=== PATIENT | female | born 1985 | race Caucasian/White ===

== ENCOUNTER 2016-07-28 04:09 | Inpatient (IN) | payer SELFPAY ==
--- NOTE | 2016-07-28 05:00 | ED.PDOC ---
History of Present Illness - General Information Source: patient, RN notes reviewed, Vital Signs reviewed Exam Limitations: no limitations - History of Present Illness Initial Comments: Nadine Hobbs 31 y/o female stated that for the last one week she experienced dull bearable pains on her right flank radiating to her right lower quadrant no other accompanying symptoms able to eat without worsening her symptoms but the last 3days she started having occasional nausea and vomiting with loss of appetite stating smell of food makes her throw up.No dysuria or hematuria no diarrhea or constipation.Had history of anemia and worked up with egd/ colonoscopy showing internal hemorrhoids and 2 colonic polyps removed during colonoscopy. This time came to er rhinking she might have uti. Abdominal Pain Onset Location: flank - right Pain Radiation: RLQ Quality: dull, steady Timing/Duration: other - 7 days ago woke her up midnight pain got worse Worsening Factors: nothing Associated Symptoms: nausea/vomiting <Craig Seymour - Last Filed: 07/28/16 06:45> <Elijah Joseph - Last Filed: 07/28/16 08:13> - General Chief Complaint: Abdominal Pain Stated Complaint: low abdomen pain, flank pain Time Seen by Provider: 07/28/16 04:59 Review of Systems - Review of Systems Constitutional: States: no symptoms reported EENTM: States: no symptoms reported Respiratory: States: no symptoms reported Cardiology: States: no symptoms reported Gastrointestinal/Abdominal: States: see HPI Genitourinary: States: no symptoms reported Musculoskeletal: States: no symptoms reported Skin: States: no symptoms reported Neurological: States: no symptoms reported Endocrine: States: no symptoms reported Hematologic/Lymphatic: States: no symptoms reported <Craig Seymour - Last Filed: 07/28/16 06:45> Past Medical History (General) - Patient Medical History Hx Seizures: No Hx Stroke: No Hx Dementia: No Hx Asthma: No Hx of COPD: No Hx Cardiac Disorders: No Hx Congestive Heart Failure: No Hx Pacemaker: No Hx Hypertension: No Hx Thyroid Disease: No Hx Diabetes: No Hx Gastroesophageal Reflux: No Hx Renal Disease: No Hx Cancer: No Hx of HIV: No Hx Hepatitis C: No Hx MRSA: No Hx Other PMH: Yes - chronic anemia Surgical History: no surgical history, other - colonoscopy w/polyp removal- benign,egd - Vaccination History Hx Tetanus, Diphtheria Vaccination: No Hx Influenza Vaccination: No Hx Pneumococcal Vaccination: Yes Immunizations Up to Date: No - Social History Hx Tobacco Use: No Hx Chewing Tobacco Use: No Hx Alcohol Use: No Hx Substance Use: No Hx Substance Use Treatment: No Hx Depression: No Feels Threatened In Home Enviroment: No Feels Threatened In a Relationship: No Hx Physical Abuse: No Hx Emotional Abuse: No Hx Suspected Abuse: No - Female History Patient is a Female of Child Bearing Age (10 -59 yrs old): Yes Patient : No <FeliInez hammo R - Last Filed: 07/28/16 06:45> Family Medical History - Family History Mother Family History: Unknown Living Status: Still Living Hx Family Hypertension: Yes - parents Hx Family Cancer: Yes - lung-dad;cervical-mom <Inez Seymouro R - Last Filed: 07/28/16 06:45> Physical Exam - Physical Exam General Appearance: Alert, No apparent distress Eyes, Ears, Nose, Throat Exam: PERRL/EOMI, normal ENT inspection, TMs normal, pharynx normal Neck: non-tender, full range of motion, supple, normal inspection Respiratory: chest non-tender, lungs clear, normal breath sounds Cardiovascular/Chest: normal peripheral pulses, regular rate, rhythm, no edema, no murmur Peripheral Pulses: No deficit Gastrointestinal/Abdominal: normal bowel sounds, soft, no organomegaly, tenderness - rlq no peritoneal signs Back Exam: normal inspection, no CVA tenderness, no vertebral tenderness Extremity: non-tender, normal inspection, no pedal edema, no calf tenderness Neurologic: no motor/sensory deficits, alert, oriented x 3 Skin Exam: normal color, warm/dry Lymphatic: no adenopathy <Inez Seymouro R - Last Filed: 07/28/16 06:45> Progress - Results/Orders Results/Orders: Vital Signs - 8 hr 07/28/16 07/28/16 07/28/16 04:17 05:09 06:09 Temperature 97.9 F Pulse Rate [ 110 H 107 H 105 H monitor] Respiratory 16 16 16 Rate Blood Pressure 147/66 145/74 141/83 [Left Arm] O2 Sat by Pulse 96 97 97 Oximetry 07/28/16 04:17 UA [URINALYSIS] Stat 07/28/16 06:00 URINE CULTURE W/COLONY COUNT Stat 07/28/16 06:07 Abdomen/Pelvis w/Contrast [CT] Stat 07/28/16 06:08 Hold Metformin x 48Hrs [id number] 07/28/16 06:28 ETHYL ALCOHOL (ETOH) Stat 07/28/16 06:30 URINE CULTURE W/COLONY COUNT Stat Laboratory Results WBC 3.6 K/mm3 (4.8-10.8) L 07/28/16 05:20 RBC 3.61 M/mm3 (4.20-5.40) L 07/28/16 05:20 Hgb 10.8 gm/dL (12.0-16.0) L 07/28/16 05:20 Hct 32.9 % (36.0-47.0) L 07/28/16 05:20 MCV 91.1 fl (81.0-99.0) 07/28/16 05:20 MCH 29.9 pg (27.0-31.0) 07/28/16 05:20 MCHC 32.7 g/dL (33.0-37.0) L 07/28/16 05:20 RDW 19.4 % (11.5-14.5) H 07/28/16 05:20 Plt Count 100 K/mm3 (130-400) L 07/28/16 05:20 MPV 6.3 fl (7.40-10.4) L 07/28/16 05:20 Absolute Neuts (auto) 1.30 K/uL (1.8-6.8) L 07/28/16 05:20 Absolute Lymphs (auto) 1.50 K/uL (1.0-3.4) 07/28/16 05:20 Absolute Monos (auto) 0.60 K/uL (0.2-0.8) 07/28/16 05:20 Absolute Eos (auto) 0.10 K/uL (0.0-0.4) 07/28/16 05:20 Absolute Basos (auto) 0.10 K/uL (0.0-0.1) 07/28/16 05:20 Neutrophils % 35.4 % (42.0-78.0) L 07/28/16 05:20 Lymphocytes % 42.1 % (20.0-50.0) 07/28/16 05:20 Monocytes % 17.2 % (2.0-9.0) H 07/28/16 05:20 Eosinophils % 2.9 % (1.0-5.0) 07/28/16 05:20 Basophils % 2.4 % (0.0-2.0) H 07/28/16 05:20 Sodium 144 mmol/L (135-145) 07/28/16 05:20 Potassium 3.4 mmol/L (3.6-5.0) L 07/28/16 05:20 Chloride 109 mmol/L (101-111) 07/28/16 05:20 Carbon Dioxide 25 mmol/L (21-31) 07/28/16 05:20 Anion Gap 13.4 (12-18) 07/28/16 05:20 BUN 7 mg/dL (7-18) 07/28/16 05:20 Creatinine 0.45 mg/dL (0.6-1.3) L 07/28/16 05:20 BUN/Creatinine Ratio 15.6 (10-20) 07/28/16 05:20 Random Glucose 99 mg/dL (70-105) 07/28/16 05:20 Serum Osmolality 284.8 mOsm/L (275-295) 07/28/16 05:20 Calcium 8.6 mg/dL (8.4-10.2) 07/28/16 05:20 Total Bilirubin 2.7 mg/dL (0.2-1.0) H* 07/28/16 05:20 AST 168 IU/L (10-42) H 07/28/16 05:20 ALT 63 IU/L (10-60) H 07/28/16 05:20 Alkaline Phosphatase 82 IU/L (42-121) 07/28/16 05:20 Serum Total Protein 8.0 gm/dL (6.4-8.2) 07/28/16 05:20 Albumin 4.1 g/dl (3.2-5.5) 07/28/16 05:20 Globulin 3.9 gm/dL (2.3-3.5) H 07/28/16 05:20 Albumin/Globulin Ratio 1.1 (1.1-1.9) 07/28/16 05:20 Lipase 33 U/L (22-51) 07/28/16 05:20 Serum HCG, Qual Negative 07/28/16 05:20 Urine Color Yellow (Yellow) 07/28/16 06:00 Urine Appearance Sl cloudy (Clear) 07/28/16 06:00 Urine pH 7.0 (4.5-7.8) 07/28/16 06:00 Ur Specific [place] 1.010 (1.005-1.030) 07/28/16 06:00 Urine Protein Negative mg/dL 07/28/16 06:00 Urine Glucose (UA) Negative mg/dL (Negative) 07/28/16 06:00 Urine Ketones Negative mg/dL (NEGATIVE) 07/28/16 06:00 Urine Blood Moderate (Negative) H 07/28/16 06:00 Urine Nitrite Positive H 07/28/16 06:00 Urine Bilirubin Negative (NEGATIVE) 07/28/16 06:00 Urine Urobilinogen 2.0 mg/dL (0.2-1.0) H 07/28/16 06:00 Ur Leukocyte Esterase Negative (Negative) 07/28/16 06:00 Urine RBC 1-3 /hpf 07/28/16 06:00 Urine WBC 0 /hpf 07/28/16 06:00 Ur Epithelial Cells 0-1 /hpf 07/28/16 06:00 Urine Bacteria 4+ H 07/28/16 06:00 Urine Opiates Screen Negative ng/mL (2000) 07/28/16 06:00 Urine Barbiturates Negative ng/mL (200) 07/28/16 06:00 Ur Phencyclidine Scrn Negative ng/mL (25) 07/28/16 06:00 U Amphetamin/Meth Scrn Negative ng/mL (1000) 07/28/16 06:00 U Benzodiazepines Scrn Negative ng/mL (200) 07/28/16 06:00 U Cocaine Metab Screen Negative ng/mL (300) 07/28/16 06:00 U Cannabinoids Screen Negative ng/mL (50) 07/28/16 06:00 Ethyl Alcohol 463.70 mg/dL (0-79) H* 07/28/16 05:20 <Craig Seymour R - Last Filed: 07/28/16 06:45> - Progress Progress: 07/28/16 08:08 I spoke with the patient regarding her hyperbilirubinemia of 2.7 and her elevated liver enzymes. Blood alcohol levels were in the 400s. Platelets 100. CT abdomen/pelvis showed chronic liver changes including possible fibrosis. It also showed evidence of esophageal varices. After discussing the seriousness of these findings with the patient, she agreed to say for alcohol detoxification and fluids with monitoring of liver function. Incidently, she has a moderate UTI. Laboratory Tests 07/28/16 07/28/16 07/28/16 05:20 05:20 05:20 WBC 3.6 L RBC 3.61 L Hgb 10.8 L Hct 32.9 L MCV 91.1 MCH 29.9 MCHC 32.7 L RDW 19.4 H Plt Count 100 L MPV 6.3 L Absolute Neuts (auto) 1.30 L Absolute Lymphs (auto) 1.50 Absolute Monos (auto) 0.60 Absolute Eos (auto) 0.10 Absolute Basos (auto) 0.10 Neutrophils % 35.4 L Lymphocytes % 42.1 Monocytes % 17.2 H Eosinophils % 2.9 Basophils % 2.4 H Sodium 144 Potassium 3.4 L Chloride 109 Carbon Dioxide 25 Anion Gap 13.4 BUN 7 Creatinine 0.45 L BUN/Creatinine Ratio 15.6 Random Glucose 99 Serum Osmolality 284.8 Calcium 8.6 Total Bilirubin 2.7 H* AST 168 H ALT 63 H Alkaline Phosphatase 82 Serum Total Protein 8.0 Albumin 4.1 Globulin 3.9 H Albumin/Globulin Ratio 1.1 Lipase 33 Serum HCG, Qual Negative Urine Color Urine Appearance Urine pH Ur Specific [place] Urine Protein Urine Glucose (UA) Urine Ketones Urine Blood Urine Nitrite Urine Bilirubin Urine Urobilinogen Ur Leukocyte Esterase Urine RBC Urine WBC Ur Epithelial Cells Urine Bacteria Urine Opiates Screen Urine Barbiturates Ur Phencyclidine Scrn U Amphetamin/Meth Scrn U Benzodiazepines Scrn U Cocaine Metab Screen U Cannabinoids Screen Ethyl Alcohol 07/28/16 07/28/16 07/28/16 05:20 06:00 06:00 WBC RBC Hgb Hct MCV MCH MCHC RDW Plt Count MPV Absolute Neuts (auto) Absolute Lymphs (auto) Absolute Monos (auto) Absolute Eos (auto) Absolute Basos (auto) Neutrophils % Lymphocytes % Monocytes % Eosinophils % Basophils % Sodium Potassium Chloride Carbon Dioxide Anion Gap BUN Creatinine BUN/Creatinine Ratio Random Glucose Serum Osmolality Calcium Total Bilirubin AST ALT Alkaline Phosphatase Serum Total Protein Albumin Globulin Albumin/Globulin Ratio Lipase Serum HCG, Qual Urine Color Yellow Urine Appearance Sl cloudy Urine pH 7.0 Ur Specific [place] 1.010 Urine Protein Negative Urine Glucose (UA) Negative Urine Ketones Negative Urine Blood Moderate H Urine Nitrite Positive H Urine Bilirubin Negative Urine Urobilinogen 2.0 H Ur Leukocyte Esterase Negative Urine RBC 1-3 Urine WBC 0 Ur Epithelial Cells 0-1 Urine Bacteria 4+ H Urine Opiates Screen Negative Urine Barbiturates Negative Ur Phencyclidine Scrn Negative U Amphetamin/Meth Scrn Negative U Benzodiazepines Scrn Negative U Cocaine Metab Screen Negative U Cannabinoids Screen Negative Ethyl Alcohol 463.70 H* 07/28/16 06:45 WBC RBC Hgb Hct MCV MCH MCHC RDW Plt Count MPV Absolute Neuts (auto) Absolute Lymphs (auto) Absolute Monos (auto) Absolute Eos (auto) Absolute Basos (auto) Neutrophils % Lymphocytes % Monocytes % Eosinophils % Basophils % Sodium Potassium Chloride Carbon Dioxide Anion Gap BUN Creatinine BUN/Creatinine Ratio Random Glucose Serum Osmolality Calcium Total Bilirubin AST ALT Alkaline Phosphatase Serum Total Protein Albumin Globulin Albumin/Globulin Ratio Lipase Serum HCG, Qual Urine Color Urine Appearance Urine pH Ur Specific [place] Urine Protein Urine Glucose (UA) Urine Ketones Urine Blood Urine Nitrite Urine Bilirubin Urine Urobilinogen Ur Leukocyte Esterase Urine RBC Urine WBC Ur Epithelial Cells Urine Bacteria Urine Opiates Screen Urine Barbiturates Ur Phencyclidine Scrn U Amphetamin/Meth Scrn U Benzodiazepines Scrn U Cocaine Metab Screen U Cannabinoids Screen Ethyl Alcohol 419.00 H* <Elijah Joseph - Last Filed: 07/28/16 08:13> Departure <Craig Seymour - Last Filed: 07/28/16 06:45> - Departure Diet: other - as per hospitalist <Elijah Joseph - Last Filed: 07/28/16 08:13> - Departure Clinical Impression: Hyperbilirubinemia, Abnormal liver enzymes, Acute alcohol intoxication, UTI ( urinary tract infection), Chronic alcoholism Disposition: Admit Patient Condition: Fair Departure Forms: ED Discharge - Pt. Copy, Patient Portal Self Enrollment Instructions: DI for Abdominal Pain-Adult Home Medications: Ambulatory Orders Ferrous Sulfate [Iron (Ferrous Sulfate)] 50 mg PO DAILY 07/28/16 Water Pill 1 ea PO DAILY 07/28/16
[2016-07-28] MEDS ORDERED: MORPHINE SULFATE INJ 10 MG/ML VIAL IV ONE (05:01)
[2016-07-28] MEDS ORDERED: SODIUM CHLORIDE 0.9% 1000ML 1,000 ML IVS ONE (05:01)
[2016-07-28] MEDS ORDERED: ONDANSETRON INJ 4 MG/2 ML VIAL IV ONE (05:02)
--- NOTE | 2016-07-28 07:12 | CT ---
Procedure: CT ABDOMEN PELVIS WITH IV CONTRAST Exam Date: 07/28/2016 Ordering Provider: Craig Seymour Clinical Indication: Generalized abdominal pain Comparison: None TECHNIQUE: 5 mm images were taken through the abdomen and pelvis after the administration of nonionic intravenous contrast material. Oral contrast was not administered. Coronal and sagittal reformatted images were generated. This exam was performed according to our departmental dose optimization program which includes use of automated exposure control, adjustment of the mA and/or kV according to patient size and/or use of iterative reconstruction technique. FINDINGS: Lower chest: Cardiomegaly. Abdomen: Liver and biliary system: Hepatomegaly. There is heterogenous attenuation of the liver parenchyma. Caudate lobe appears enlarged. No discrete liver mass visualized. Very mild intrahepatic biliary ductal prominence. Gallbladder is distended. No calcified gallstones. Spleen: Enlarged Pancreas: Unremarkable Adrenal glands: Unremarkable Kidneys: Punctate nonobstructing stone in the upper pole the left kidney. No hydronephrosis in either kidney. Lymph nodes: No lymphadenopathy Retroperitoneum, abdominal wall, peritoneal cavity: No ascites. No free intraperitoneal air. Vessels: No abdominal aortic aneurysm. There are extensive portosystemic collaterals/varices. There are esophageal and gastric varices. Pelvis: Lymph nodes: No lymphadenopathy Bowel: No bowel obstruction. No findings to suggest acute appendicitis. No bowel wall thickening. Bladder: Unremarkable Pelvic organs: 4 cm right adnexal cyst. 1.5 cm left adnexal cyst. These are almost certainly benign and no follow-up imaging is recommended. Bones: Nonacute. Bilateral pars defects at L5. Grade 1 anterolisthesis of L5 on S1. IMPRESSION: 1.Hepatomegaly with heterogenous attenuation of the liver parenchyma. No discrete liver mass visualized. These findings are nonspecific but can sometimes be seen with infiltrative hepatocellular carcinoma or confluent liver fibrosis. Further evaluation with contrast-enhanced MRI is recommended. 2. Gallbladder is distended. No calcified gallstones. 3. Extensive portosystemic collaterals with esophageal and gastric varices. 4. Splenomegaly. Electronically signed by: Vinicio Tamayo MD 07/28/2016 7:11 AM CDT
[2016-07-28] MEDS ORDERED: SODIUM CHLORIDE 0.9% 1000ML 1,000 ML ONE (08:01)
[2016-07-28] MEDS ORDERED: THIAMINE HCL INJ 100 MG/ML VIAL ONE (08:02)
[2016-07-28] MEDS ORDERED: MULTIPLE VITAMIN 10 ML VIAL ONE (08:03)
[2016-07-28] MEDS: MULTIPLE VITAMIN INJ 10 ML, THIAMINE HCL INJ 100 MG in SODIUM CHLORIDE 0.9% 1000ML 1,00... IVS SCH (08:09)
--- NOTE | 2016-07-28 09:21 | HP ---
SUPERVISING PHYSICIAN: Ayad Florence M.D. CHIEF COMPLAINT: Right upper quadrant pain, questionable urinary tract infection. HISTORY OF PRESENT ILLNESS: Ms. Hobbs is a 31 year-old female patient that has noted that she has had a weeks' worth of ongoing right flank pain that has radiated up into both right upper quadrant and lower quadrant with her unable to eat due to worsening of her symptoms for the last 3 days. She has now started having some nausea and vomiting, and decreased appetite, but actually no emesis. She felt that she may have a urinary tract infection so she presented to the Emergency Department. She denies any dysuria, hematuria , diarrhea or constipation. She does have a significant history of ongoing chronic anemia that is being followed closely by her primary care physician and has recently had an EGD and colonoscopy that showed internal hemorrhoids and 2 colonic polyps that were reviewed by colonoscopy. Initial workup in the Emergency Department showed her to have a white count of 3.6 with hemoglobin 10.8, hematocrit 32.9 with platelet count 100,000. Differential was will a left shift. Chemistries are significant for an elevated bilirubin of 2.7 with AST 168, ALT 63, potassium 3.4, otherwise electrolytes were within normal limits as well as BUN and creatinine. She admitted to drinking, therefore a toxicology screen was done which was negative for all abuse substances tested, but was positive for an alcohol level of 463. Urinalysis showed her to have a moderate amount of blood, positive nitrites but negative leukocyte esterase with microscopic examination showing 4+ bacteria but no WBCs. Given the patient 's elevated bilirubin and ongoing abdominal pain, a CT of her abdomen was obtained prior to admission and per radiology interpretation abdominal/pelvic CT with IV contrast showed hepatomegaly with some gallbladder distention but no obvious stones with as well extensive portosystemic collaterals with esophageal and gastric varices, and splenomegaly. Pancreatic enzymes show a lipase that was normal. She was afebrile. Given her elevated bilirubin and elevated alcohol level, Dr. Joseph requested the patient be admitted at least overnight for continued IV therapy for treatment of underlying urinary tract infection and allow the patient to detox, and treat some underlying dehydration with close monitoring and further workup. The patient will now be admitted to the Medical/Surgical floor for continued treatment, evaluation and further workup to include ultrasound of the gallbladder and initiation of antibiotic therapy. The patient is admitted in stable condition. PAST MEDICAL HISTORY: 1. Ongoing history of fatty liver disease diagnosed in 2016 with the patient denying any significant history of alcoholism. 2. Chronic anemia currently followed by her primary care physician, Dr. Peña at [facility]. PAST SURGICAL HISTORY: 1. Recent colonoscopy within the last month showing several polyps with internal hemorrhoids per the patient's report as there is no office report available for evaluation. LAST MENSTRUAL PERIOD: 07/15/16 HOME MEDICATIONS: 1. Tramadol 50 mg every 6 hours p.r.n. 2. Aldactone 25 mg in the morning. 3. Iron sulfate 50 mg daily. ALLERGIES: NO KNOWN DRUG ALLERGIES. FAMILY HISTORY: Significant for cirrhosis in her father secondary to alcoholism. It is also noted a history of cancers to include breast and lung cancer in multiple family members. SOCIAL HISTORY: The patient is and lives in [place]. 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 She denies ever smoking and admits to drinking maybe once a month. She denies any illicit drug use. MEDICAL PROVIDERS: Primary care physician, Dr. Peña at [facility] [employer], Dr. Rincon in [place]. REVIEW OF SYSTEMS: CONSTITUTIONAL: Denies any fever, chills, unintentional weight loss or weight gain. HEENT: Denies any headaches, nasal congestion, sore throat, runny nose. RESPIRATORY: Denies any shortness of breath or cough. CARDIOVASCULAR: Denies any chest pains, palpitations or syncopal episodes. GASTROINTESTINAL: As noted in the history of present illness, right upper quadrant pain with ongoing chronic fatty liver disease. GENITOURINARY: Denies any dysuria, hematuria or other urinary symptoms. NEUROLOGIC: Denies any syncopal episodes, changes in vision or other neurological symptoms. HEMATOLOGICAL: Ongoing history of chronic anemia on iron therapy. PHYSICAL EXAMINATION: VITAL SIGNS: Temperature 98.7, pulse 87, blood pressure 126/77, respirations 20 , satting 99% on room air. GENERAL: The patient appears to be in no acute distress. She is actually alert and very pleasant. HEENT: Tympanic membranes are clear bilaterally. Oropharynx is pink and moist without any lesions. NECK: No jugular venous distention. Neck is supple with full range of motion, non-tender. CHEST: Lungs are clear to auscultation bilaterally without any rhonchi, wheezing or rales. CARDIOVASCULAR: Regular rate and rhythm without appreciable murmurs, gallops, or rubs. ABDOMEN: Soft with some tenderness noted to the right upper quadrant, but no rebound tenderness. Bowel sounds are present. BACK: There is no CVA tenderness or vertebral tenderness noted. EXTREMITIES: No clubbing, cyanosis or edema. NEUROLOGIC: She is alert and oriented times three. LABORATORY: CBC shows a white count 3.6, hemoglobin 10.8, hematocrit 32.9, platelet count 100,000. Differential shows to be without a left shift. Coagulation studies show an elevated PT of 14.9 and an elevated PTT of 49.7, INR was 1.32. Chemistries show a mildly low potassium at 3.4 with creatinine 0.45 and normal BUN at 7, glucose 99, calcium 8.6. Liver functions showed an elevated bilirubin at 2.7 with AST 168, ALT 63, alkaline phosphatase was normal. Lipase was normal. Serum HCG was negative. Urinalysis showed a moderate amount of blood with positive nitrites and 2.0 urobilinogen. Microscopic exam revealed 4+ bacteria, 0 WBCs, 0 to 1 epithelials, 1 to 3 RBCs. Toxicology screen was negative for all substances tested. Alcohol level was initially 463 and prior to admission to the floor it was 419. MICROBIOLOGY: Urine culture is pending. RADIOLOGY: Initially in the Emergency Department prior to admission, she had a pelvic CT with IV contrast and per radiology interpretation there was note of hepatomegaly with heterogeneous attenuation of the liver parenchyma with no discrete liver mass visualized. Also of note was the gallbladder being somewhat distended but no calcified stones identified. There was also mention of extensive portosystemic collaterals with esophageal and gastric varices and some splenomegaly. ASSESSMENT: 1. Acute abdominal pain with a history of fatty liver disease with radiographic studies showing hepatomegaly. 2. Moderate dehydration secondary to acute alcohol intoxication. 3. Acute alcohol intoxication with elevated alcohol level concerning for alcohol poisoning with the patient having no active emesis with no history of alcoholism. 4. Radiographic evidence of splenomegaly with a mild thrombocytopenia. 5. Chronic anemia, unknown etiology with recent colonoscopy indicating 2 polyps with pathology pending and internal hemorrhoids along with extensive gastric and esophageal varices with no mention of complications. 6. Right upper quadrant pain with concerns for cholecystitis without any evidence of cholelithiasis on initial radiographic studies. 7. Elevated liver function tests and coagulation studies secondary to fatty liver disease and cirrhosis, unknown etiology, questionable cirrhosis from alcoholism with the patient denying chronic alcohol consumption. 8. Mild electrolytes imbalance with hypokalemia. PLAN: The patient will be admitted for IV therapy, detox and close observation. Will plan to do a gallbladder ultrasound to further rule out any pathology from gallbladder disease given the patient's symptoms and findings on CT. Plan to consult with Dr. Mari in the morning when results are available. The patient will be on a regular diet as tolerated. Will hold off on DVT prophylaxis with Lovenox given the elevated coagulation studies and low platelet count. Will correct her dehydration with IV fluids as well as provide multivitamin infusion with thiamine and additional IV fluids to include half normal saline with 20 of potassium to help replace potassium to run at a total of 250 per hour with close monitoring of her I's and O's. Anticipate possible discharge tomorrow. The patient does have a clinical followup on the with her GI specialist this week. Until then, will continue to monitor the patient closely and treat appropriately. #[id number] [facility]
[2016-07-28] MEDS ORDERED: IV SET AND CAP CHANGE INJ INJ SCH (10:00)
[2016-07-28] MEDS ORDERED: [UNRECOGNIZED DRUG - OTHER] IVS ONE (10:11)
[2016-07-28] MEDS ORDERED: D5 IVS ONE (10:11)
[2016-07-28] MEDS ORDERED: KCL IVS ONE (10:11)
[2016-07-28] MEDS ORDERED: KCL 20MEQ/0.45% NS 1,000 ML IVS ONE (10:18)
[2016-07-28] MEDS ORDERED: cefTRIAXone SODIUM 1 GM VIAL ONE ×2 (10:36→20:18)
[2016-07-28] MEDS ORDERED: SODIUM CHL 0.9% 50ML MIN-BAG+ 50 ML IVPB ONE ×2 (10:36→20:18)
[2016-07-28] MEDS: cefTRIAXone SODIUM 1 GM in SODIUM CHL 0.9% 50ML MIN-BAG+ 50 ML IVPB SCH ×2 (10:41→22:45)
[2016-07-28] MEDS: KCL 20MEQ/0.45% NS 1,000 ML IVS PRN ×2 (11:16→19:33)
--- NOTE | 2016-07-28 12:39 | US ---
Study: Right upper quadrant abdominal ultrasound. Indication: RUQ pain elevated LFT Technical: Multiplanar, grayscale sonogram of the right upper quadrant of the abdomen obtained. Comparison: CT, same day. Findings: The liver is heterogeneously increased in echogenicity consistent with hepatic steatosis. The liver measures 18.3 cm in length. No discrete live mass. Gallbladder distended without appreciable stones. Mild gallbladder wall thickening measuring 3.4 mm. Sonographic Bass sign negative. The common bile duct measures 8.9 mm in diameter. Distal aspect not included within the field of view. No ascites. Impression: Hepatic steatosis and hepatomegaly. No definitive mass lesion. Gallbladder distention with mild gallbladder wall thickening. No definite stones. Dilatation of the common bile duct at 8.9 mm. Electronically signed by: Abdon Melo MD 07/28/2016 12:39 PM CDT
[2016-07-28] MEDS: MORPHINE SULFATE INJ 10 MG/ML VIAL IV PRN ×3 (13:01→23:02)
[2016-07-28] MEDS: SODIUM CHLORIDE 0.9% (FLUSH) 10 ML SYG IV PRN ×2 (21:34→23:01)
[2016-07-28] MEDS: ONDANSETRON INJ 4 MG/2 ML VIAL IV PRN (21:35)
--- NOTE | 2016-07-28 23:38 | PCM.CORE ---
Physician DVT/VTE - Contraindications Medication Contraindication: Medical Contraindication - elevated Pt and PTT with elevated LFT - Nurse DVT Assessment & Total Each Risk Factor Represents 3 Points: Family Hx thrombosis Each Risk Factor is 1 Point: Varicose Veins/Edema Legs, Obesity (BMI >25) DVT Assessment Score: 5 - 5 or more Very High Risk Treatments: Early Ambulation *, Sequential Compression Device
[2016-07-29] MEDS: SODIUM CHLORIDE 0.9% (FLUSH) 10 ML SYG IV PRN (04:14)
[2016-07-29] MEDS: MORPHINE SULFATE INJ 10 MG/ML VIAL IV PRN ×2 (04:14→09:47)
[2016-07-29] MEDS: KCL 20MEQ/0.45% NS 1,000 ML IVS PRN (04:19)
[2016-07-29] MEDS ORDERED: SODIUM CHLORIDE 0.9% 1000ML 1,000 ML ONE (07:16)
[2016-07-29] MEDS ORDERED: SODIUM CHL 0.9% 50ML MIN-BAG+ 50 ML IVPB ONE (07:16)
[2016-07-29] MEDS ORDERED: THIAMINE HCL INJ 100 MG/ML VIAL ONE (07:16)
[2016-07-29] MEDS ORDERED: MULTIPLE VITAMIN 10 ML VIAL ONE (07:17)
[2016-07-29] MEDS ORDERED: cefTRIAXone SODIUM 1 GM VIAL ONE (07:17)
[2016-07-29] MEDS: ONDANSETRON INJ 4 MG/2 ML VIAL IV PRN (07:52)
[2016-07-29] MEDS: MULTIPLE VITAMIN INJ 10 ML, THIAMINE HCL INJ 100 MG in SODIUM CHLORIDE 0.9% 1000ML 1,00... IVS SCH (07:53)
[2016-07-29] MEDS: cefTRIAXone SODIUM 1 GM in SODIUM CHL 0.9% 50ML MIN-BAG+ 50 ML IVPB SCH (09:37)
[2016-07-29 10:12] VITALS: BP 150/80; TEMP 98.3; O2SAT 98
[2016-07-29] MEDS ORDERED: PHENAZOPYRIDINE HCL 200 MG TAB PO SCH (10:30)
--- NOTE | 2016-08-02 21:18 | DS ---
SUPERVISING PHYSICIAN: Ayad Florence M.D. DISCHARGE DIAGNOSIS: 1. Acute abdominal pain on admission with history of fatty liver disease with radiographic studies showing hepatomegaly with gallbladder scan without any significant findings with the patient having resolution of her pain prior to discharge felt to be secondary to extensive dehydration from excessive alcohol intake. 2. Moderate to severe dehydration due to acute alcohol intoxication. 3. Acute alcohol intoxication with elevated alcohol level concerning for alcohol poisoning with the patient having no active emesis and no reported history of alcoholism showing good response to IV fluids and clinically stable at discharge. 4. Radiographic evidence of splenomegaly with a mild thrombocytopenia secondary to ongoing liver disease. 5. Chronic anemia, unknown etiology with the patient having a recent colonoscopy indicating 2 polyps with pathology pending and internal hemorrhoids along with extensive gastric and esophageal varices with no mention of complications. 6. Right upper quadrant pain initially with concerns for cholecystitis without any evidence of cholelithiasis on radiographic studies. 7. Elevated liver function tests and coagulation studies secondary to fatty liver disease and cirrhosis, unknown etiology with persistent elevated total bilirubin currently being followed by a gastrointestinal specialist in [place]. Questionable cirrhosis from alcoholism but the patient denies any chronic alcohol consumption. 8. Electrolyte imbalance with hypokalemia secondary to excessive alcohol intake. HISTORY OF PRESENT ILLNESS: Ms. Hobbs is a 31 year-old female patient that was noted to have a weeks' worth of ongoing right flank pain that had radiated up into both right upper and lower quadrants with her unable to eat due to worsening pain over the last 3 days prior to admission. Before admission, she started having some nausea and vomiting and decreased appetite. She felt that she probably had a urinary tract infection so she presented to the Emergency Department. She denied any dysuria, hematuria, diarrhea or constipation. She does have a significant history of ongoing chronic anemia that is being followed closely by her primary care physician and has recently had an EGD and colonoscopy that showed internal hemorrhoids and 2 colonic polyps that were reviewed by colonoscopy. Initial workup in the Emergency Department showed that she had a white count of 3.6 with hemoglobin 10.8, hematocrit 32.9 with platelet count 100,000. Differential did show a left shift. Initial chemistries on admission showed an elevated bilirubin of 2.7 with AST 168, ALT 63, potassium 3.4, otherwise all other electrolytes were within normal limits as well as BUN and creatinine. She admitted that she had been drinking before she was admitted through the Emergency Department, therefore a toxicology screen was done although negative for substance abuse, she did show a positive alcohol level of 463. Urinalysis performed in the Emergency Department showed that she had a moderate amount of blood, positive nitrites but negative leukocyte esterase with microscopic examination showing 4 + bacteria but no WBCs. Given the patient's elevated bilirubin and ongoing abdominal pain, a CT of her abdomen was completed prior to admission and per radiology interpretation abdominal/pelvic CT with IV contrast showed hepatomegaly with some gallbladder distention but no obvious stones with as well extensive portosystemic collaterals with esophageal and gastric varices, and splenomegaly. Pancreatic enzymes were completed as well and showed lipase was in normal limits. She was afebrile initially on admission. Given her elevated bilirubin and elevated alcohol level, Dr. Joseph, E. R. physician, requested the patient be admitted at least overnight for continued IV therapy for treatment of underlying urinary tract infection and allow the patient to detox, and treat some underlying dehydration with close monitoring and further workup. The patient was admitted to the Medical/Surgical floor for continued treatment and evaluation. She was also worked up awaiting ultrasound of the gallbladder and started on initiation of antibiotic therapy. She was in stable condition at time of admission. LABORATORY: CBC on admission showed a white count of 3.6, at discharge she did show a decrease in white count to 2.3 as well as hemoglobin dropped to 9.2, hematocrit 28.4, platelet count 62,000. She did have a left shift initially on admission but this had normalized prior to discharge. Coagulation studies show a slightly elevated PT and PTT with PT of 14.9, PTT of 49.7. Chemistries on admission showed potassium 3.4, otherwise electrolytes and renal function were within normal limits at discharge. Electrolytes were normal with potassium 3.8 , BUN was less than 5, creatinine 0.48. Total bilirubin initially was 2.7. It did show a slight elevation prior to discharge at 3.0, but her AST and ALT had shown improvement with AST going down from 168 to 115 and ALT normalizing to 49. She had a serum HCG that was negative. Urinalysis showed a moderate amount of blood, positive nitrites, 2+ urobilinogen on dipstick with microscopic revealing 4+ bacteria but no WBCs, 1 to 3 RBCs. Toxicology screen was negative for all substances tested. She had an alcohol level initially in the Emergency Department on admission that was 463 after initiation of therapy. Prior to discharge on admission to the Medical/Surgical floor it had gone down to 419. MICROBIOLOGY: Urine culture final results show Klebsiella planticola that was resistant only the Ampicillin and Piperacillin showing sensitive to first, second and third generation cephalosporins as well as fluoroquinolones. RADIOLOGY: In the Emergency Department, she had an abdominal/pelvic CT with contrast and per radiology interpretation there was note of hepatomegaly with heterogenous attenuation of the liver parenchyma with no discrete liver masses visualized. Also of note was the gallbladder was distended but no calcified stones were noted as well as extensive portosystemic collaterals with esophageal and gastric varices along with splenomegaly. Please see that final report for full details. She then had a gallbladder ultrasound after admission to the Medical/Surgical floor to further rule out cholelithiasis and per radiology interpretation there was note of hepatic steatosis and hepatomegaly but no definite mass lesions. The gallbladder was noted to be distended with mild gallbladder wall thickening but no definite stones. There was note of dilation of the common bile duct at 8.9 mm. HOSPITAL COURSE: Ms. Hobbs was admitted on 07/28/16 as noted in the History of Present Illness for excessive alcohol level, dehydration and urinary tract infection with elevated liver function tests. She was initiated on a multivitamin infusion saline drip and additional fluids. She had a further workup of the gallbladder which failed to reveal any significant gallstones or pathology. She did have good resolution of her pain and was pain free prior to discharge. She was started on antibiotics on admission to include Rocephin that the final culture results showed that the organism was sensitive to. She showed good improvement in her condition after fluids and IV antibiotic initiation, and was felt well enough to discharge home as she was to have a close clinical followup already scheduled with her gastrointestinal specialist in [place] this week. She never did show any signs of withdrawal symptoms and was adamant that she was not an alcoholic and had no issues with excessive alcohol consumption. PLAN: Ms. Hobbs was discharged on 07/29/16 with instructions to have close clinical followup with both her primary care provider, Bernabe Smith as well as her gastrointestinal specialist in [place]. She was encouraged to continue with p.o. fluids to help with resolution of dehydration. She was started on antibiotics at discharge to include Cephalexin as well as Pyridium for symptomatic control. She was told to resume her home medications as previous to admission and take the antibiotics to completion as directed. She was told to call the hospital or return to the hospital should she have any concerning symptoms or worsening or failure of improvement in her condition. At discharge, new prescriptions included: 1. Keflex 500 mg twice day for 10 days. 2. Pyridium 200 mg 3 times daily for 2 days. All other medications prior to admission were resumed, including iron. Diet at discharge was as tolerated. Activity as tolerated. Condition stable and improved. #[id number] [facility]
== END 2016-07-29 13:00 | disposition home or self-care (01) | DRG 690 ==
LOC: ER 04:09 → MS 09:18
PROVIDERS: ADMIT Nurse Practitioner Family; ATTEND Nurse Practitioner Family
PROC: BW21YZZ Computerized Tomography (CT Scan) of Abdomen and Pelvis using Other Contrast (ICD-10-PCS; principal; 2016-07-28)
DX: N39.0 Urinary tract infection, site not specified (principal); I85.10 Secondary esophageal varices without bleeding; T51.0X1A Toxic effect of ethanol, accidental (unintentional), initial encounter; K70.0 Alcoholic fatty liver; F10.229 Alcohol dependence with intoxication, unspecified; D69.6 Thrombocytopenia, unspecified; R16.2 Hepatomegaly with splenomegaly, not elsewhere classified; D64.9 Anemia, unspecified; K70.30 Alcoholic cirrhosis of liver without ascites; I86.4 Gastric varices; E87.6 Hypokalemia; E86.0 Dehydration; K64.8 Other hemorrhoids; Y90.8 Blood alcohol level of 240 mg/100 ml or more; Y92.9 Unspecified place or not applicable; Z81.1 Family history of alcohol abuse and dependence